=== PATIENT | female | born 1960 | race Caucasian/White ===

== ENCOUNTER → 2017-11-19 12:07 | Day surgery (SDC) | payer BC, SELFPAY ==
[2017-11-19 13:16] VITALS: BP 136/69; PULSE 62; RESP 15; TEMP 36.3; O2SAT 100; BMI 24.3
[2017-11-19 13:50] VITALS: BP 141/75; PULSE 65; RESP 18
[2017-11-19 13:51] VITALS: BP 136/77; PULSE 70; RESP 20; O2SAT 98
--- NOTE | 2017-11-19 13:56 | P.PCN_ITS ---
- Procedure Date: 11/19/17 Time: 13:53 Anesthesiologist:: Pedro Sanderson MD Complications:: None Pre-procedure Diagnosis:: Sacroiliitis and piriformis syndrome Post-procedure Diagnosis:: Same Indications for Procedure:: This patient is a pleasant 57-year-old white female who we are seeing with left- sided hip pain. She has tenderness over left SI joint left piriformis muscle. She does have a positive Vernell's test on the side. We will do a left SI joint injection left piriformis muscle injection today. Procedure Details:: Left SI joint injection under fluoroscopy Informed consent was obtained and the risks and benefits of the procedure was going to the patient. Patient was taken to the procedure room. Patient was placed prone on the procedure table. The left hip was prepped using ChloraPrep. The skin and subcutaneous tissues were anesthetized using lidocaine. I placed a 22-gauge spinal needle into the inferior aspect of the left SI joint. Needle placement was confirmed with dye. After this we injected 5 mL bupivacaine 0.25% and Depo-Medrol 40 mg into the left SI joint. The patient tolerated the procedure well with no complication. Left piriformis muscle injection The area over the piriformis muscle was prepped using ChloraPrep. A 25-gauge was used and we injected 5 mL bupivacaine 0.25% Depo-Medrol 40 mg into the left piriformis muscle into the area of the left sciatic nerve. Plan and Disposition:: We will follow-up with her in 2 weeks. We will reevaluate her symptoms at that time.
[2017-11-19 14:17] VITALS: BP 151/76; PULSE 62; RESP 18; TEMP 36.3; O2SAT 98
== END ==
PROVIDERS: PCP Family Medicine; Visit Provider Anesthesiology
DX: M46.1 Sacroiliitis, not elsewhere classified (principal); G57.00 Lesion of sciatic nerve, unspecified lower limb
CPT/HCPCS: 27096; G0260; Q9966

== ENCOUNTER → 2017-12-13 11:23 | Outpatient (POV) | payer BC, SELFPAY ==
[2017-12-13 11:54] VITALS: BP 142/69; PULSE 68; RESP 16; O2SAT 99; BMI 25.8
--- NOTE | 2017-12-13 16:20 | [facility].PAINSOAP ---
[facility] Pain Management SOAP Note Subjective:: This patient is a pleasant 57-year-old white female who we had been treating previously for left-sided hip pain. She had a left SI joint injection and left piriformis muscle injection which helped her tremendously. Her pain is just now starting to return. We will seek approval and plan on a repeat left SI joint injection left piriformis muscle injection for residual pain. She had 80% relief for approximately 2 weeks. Her pain is just now starting to return Objective:: Alert and oriented ?3 in no acute distress. Patient has an antalgic gait. Motor strength of the lower extremities is 5/5. There is no gross sensory deficit. There is tenderness over the left piriformis muscle and left SI joint. Assessment:: Sacroiliitis and left sided sciatica/piriformis syndrome Plan:: We will seek approval and plan on a left SI joint injection sciatic nerve/piriformis muscle injection.
--- NOTE | 2017-12-13 16:23 | P.CONS_ITS ---
[facility] Pain Management SOAP Note Subjective:: This patient is a pleasant 57-year-old white female who we had been treating previously for left-sided hip pain. She had a left SI joint injection and left piriformis muscle injection which helped her tremendously. Her pain is just now starting to return. We will seek approval and plan on a repeat left SI joint injection left piriformis muscle injection for residual pain. She had 80 % relief for approximately 2 weeks. Her pain is just now starting to return Objective:: Alert and oriented ?3 in no acute distress. Patient has an antalgic gait. Motor strength of the lower extremities is 5/5. There is no gross sensory deficit. There is tenderness over the left piriformis muscle and left SI joint. Assessment:: Sacroiliitis and left sided sciatica/piriformis syndrome Plan:: We will seek approval and plan on a left SI joint injection sciatic nerve/ piriformis muscle injection.
== END ==
PROVIDERS: PCP Family Medicine; Visit Provider Anesthesiology
DX: M46.1 Sacroiliitis, not elsewhere classified (principal)
CPT/HCPCS: 99212